=== PATIENT | female | born 1950 | race Caucasian/White ===

== ENCOUNTER 2019-08-13 09:21 | Day surgery (SDC) | payer MEDICAID, OTHER ==
[~2019-08-13] VITALS: Ht 160 cm; Wt 100.5 kg
[~2019-08-13 09:21] MED LIST: CALCIUM; LEVOTHYROXINE; TYLENOL; VITAMIN D
[2019-08-13 10:25] VITALS: BP 146/70; PULSE 58; RESP 12; Ht 160 cm; Wt 100.5 kg
[2019-08-13] MEDS ORDERED: ONDANSETRON 4 MG INJ IV PRN (11:00)
[2019-08-13 11:43] VITALS: BP 120/75; PULSE 61; RESP 18
== END 2019-08-13 15:05 | disposition home or self-care (01) ==
LOC: GIL 09:21
PROVIDERS: ATTEND Internal Medicine Gastroenterology
DX: R19.4 Change in bowel habit (principal); D12.5 Benign neoplasm of sigmoid colon; D12.2 Benign neoplasm of ascending colon; K64.8 Other hemorrhoids; K64.4 Residual hemorrhoidal skin tags; K57.30 Diverticulosis of large intestine without perforation or abscess without bleeding; E03.9 Hypothyroidism, unspecified; E66.9 Obesity, unspecified; Z68.39 Body mass index [BMI] 39.0-39.9, adult
CPT/HCPCS: 45380; 88305; Z7610